=== PATIENT | female | born 1980 | race Hispanic/Latino ===

== ENCOUNTER 2016-10-14 16:07 | Emergency (ER) | payer OTHER, MEDICAID ==
[2016-10-14 16:11] VITALS: BP 143/73; PULSE 91; RESP 20; TEMP 98; O2SAT 100
--- NOTE | 2016-10-14 16:14 | ED PDOC ---
HPI: Female Pain Time Seen by Provider: 10/14/16 16:12 Chief Complaint (Nursing): Female Genitourinary Chief Complaint (Provider): Vaginal bleeding History Per: Patient Additional Complaint(s): Pt arrives for eval of vaginal bleeding while . Pt is currently 11 weeks , . Pt denies pain but states that she noticed a clot and then some pink tinged spotting when she used the bathroom. Hx of bariatric sx approx 18 months ago. Past Medical History Reviewed: Nursing Documentation, Vital Signs Vital Signs: Last Vital Signs Temp 98 F 10/14/16 16:08 Pulse 91 H 10/14/16 16:08 Resp 20 10/14/16 16:08 BP 143/73 10/14/16 16:08 Pulse Ox 100 10/14/16 16:08 - Medical History PMH: Asthma, HTN - Surgical History Surgical History: No Surg Hx - Family History Family History: States: Unknown Family Hx - Living Arrangements Living Arrangements: With Family - Social History Current smoker - smoking cessation education provided: No Alcohol: None Drugs: Denies - Immunization History Hx Tetanus Toxoid Vaccination: Yes Hx Influenza Vaccination: No Hx Pneumococcal Vaccination: Yes - Home Medications Home Medications: Ambulatory Orders Medication Instructions Recorded Folic Acid 1 mg PO DAILY 09/30/16 Nitrofurantoin Macrocrystals 1 cap PO BID #14 cap 09/30/16 [Macrobid] Multivit/Folic Acid/I 1 tab PO DAILY 09/30/16 [ Plus] Ibuprofen [Motrin] 600 mg PO Q6 #20 tab 10/14/16 - Allergies Allergies/Adverse Reactions: Allergies Allergy/AdvReac Type Severity Reaction Status Date / Time Penicillins Allergy Verified 02/16/16 09:08 Review of Systems ROS Statement: Except As Marked, All Systems Reviewed And Found Negative Physical Exam - Reviewed Nursing Documentation Reviewed: Yes Vital Signs Reviewed: Yes - Physical Exam Appears: Positive for: Well, Non-toxic, No Acute Distress Head Exam: Positive for: ATRAUMATIC, NORMAL INSPECTION, NORMOCEPHALIC Skin: Positive for: Normal Color, Warm, DRY Eye Exam: Positive for: EOMI, Normal appearance, PERRL ENT: Positive for: Normal ENT Inspection Neck: Positive for: Normal, Painless ROM Cardiovascular/Chest: Positive for: Regular Rate, Rhythm Respiratory: Positive for: CNT, Normal Breath Sounds Gastrointestinal/Abdominal: Positive for: Normal Exam, Bowel Sounds, Soft. Negative for: Tenderness Pelvic Exam: Positive for: External Exam Normal. Negative for: Active Bleeding Back: Positive for: Normal Inspection Extremity: Positive for: Normal ROM Neurologic/Psych: Positive for: Alert, Oriented - Laboratory Results Result Diagrams: 10/14/16 16:40 - ECG O2 Sat by Pulse Oximetry: 100 Medical Decision Making Medical Decision Making: Preg (+) Dip (+) blood, (-) Leuks and Nites Beta: [id number] EXAM: US , Transvaginal CLINICAL HISTORY: 36 years old female; Signs and symptoms; Lmp or gestational age (in weeks): 9 weeks 0 days as per pt last ultrasond; Other: Bleeding with clots; ; Additional info: Preg and bleeding TECHNIQUE: Pelvic ultrasound was performed utilizing transabdominal and endovaginal probes for better visualization of the adnexa and endometrial contents. COMPARISON: None FINDINGS: Uterus: Uterus is anteverted and of normal size and measures 9.5 x 7.7 x 5.3 cm. There are subcentimeter nabothian cysts in the cervix. Gestation: There is an intrauterine gestational sac, containing an embryo with a mean crown rump length of 1.55 cm, equivalent to an 8 week, 0 day . Mean gestational sac diameter is 2.07 cm equivalent to a 6 week 4 day . Composite ultrasound age is 7 weeks 2 days with an EDC 05/31/17. No embryonic cardiac motion is seen, consistent with embryonic demise. There is no subchorionic hemorrhage. Normal-appearing yolk sac is visualized. Free fluid: There is no free fluid in the pelvis. Ovaries: No mass or cyst. The right ovary measures 3.7 x 2.1 x 2 cm. The left ovary measures 3.2 x 3.1 x 2.1 cm. There is blood flow in both ovaries and there are no findings to suggest ovarian torsion. IMPRESSION: 7 week, 2 day embryonic demise. results discussed with Pt at great length Pt upset, crying, at bedside. Use of Cytotec discussed; however, Pt prefers to go home and follow up with her [employer]CO [employer]. Pt advised to return to ED if at anytime condition worsens. Disposition - Clinical Impression Clinical Impression: Spontaneous , demise - Patient ED Disposition Is Patient to be Admitted: No - Disposition Disposition: Routine/Home Disposition Time: 18:47 Condition: STABLE Additional Instructions: Follow up with your [employer]AC[employer] Return to ED if at anytime condition worsens Prescriptions: Ibuprofen [Motrin] 600 mg PO Q6 #20 tab Instructions: Spontaneous Miscarriage (ED) - POA Present On Arrival: None
[2016-10-14 16:46] LABS: BASO # 0.1 K/uL (0.0-0.2); BASO % 1.5 % (0.0-2.0); EOS # 0.3 K/uL (0.0-0.7); EOS % 2.7 % (0.0-4.0); HEMOGLOBIN 12.4 g/dL (12.0-16.0); LYMPH # 2.2 K/uL (1.0-4.3); LYMPH % 23.5 % (20.0-40.0); MEAN CELL VOLUME 91.9 fl (81.0-99.0); MEAN CORPUSCULAR HEMOGLOBIN 30.7 pg (27.0-31.0); MEAN CORPUSCULAR HGB CONC 33.4 g/dL (33.0-37.0); MONO # 0.8 K/uL (0.0-0.8); MONO % 8.8 % (0.0-10.0); NEUT # 5.9 K/uL (1.8-7.0); NEUT % 63.5 % (50.0-75.0); RBC 4.04 Mil/uL (3.80-5.20); RED CELL DISTRIBUTION WIDTH 13.5 % (11.5-14.5); WHITE BLOOD COUNT 9.3 K/uL (4.8-10.8)
[2016-10-14 17:02] LABS: SQUAMOUS EPITHIAL 33 /hpf (0-5); URINE BACTERIA RARE (<OCC); URINE BILIRUBIN NEGATIVE (NEGATIVE); URINE BLOOD LARGE (NEGATIVE); URINE CLARITY CLOUDY (Clear); URINE COLOR YELLOW (YELLOW); URINE GLUCOSE (UA) NEG (Normal); URINE LEUKOCYTE ESTERASE TRACE Leu/uL (Negative); URINE NITRATE NEGATIVE (NEGATIVE); URINE PROTEIN 30 mg/dL (NEGATIVE); URINE UROBILINOGEN 0.2-1.0 mg/dL (0.2-1.0)
--- NOTE | 2016-10-15 10:54 | US ---
PROCEDURE: First trimester ultrasound HISTORY: preg and bleeding. LMP: Unknown COMPARISON: None available. TECHNIQUE: Standard protocol for this study/examination. FINDINGS: LMP: Unknown Prior examinations from the current : None TECHNIQUE: Real-time 2D imaging, duplex and color Doppler. FINDINGS: Cardiac activity: Absent Measurements: [place] rump length: 1.55 cm Gestational age based on CRL 8 weeks Gestational age based on gestational sac measurement 6 weeks 4 days Gestational age derived from LMP: Cannot be ascertained based in the absence of a reliable/ known LMP ANUM based on LMP: Cannot be ascertained based in the absence of a reliable/ known LMP ANUM based on biometry: 05/31/2017 Yolk sac identified Uterus: Unremarkable. No Cervical abnormalities: Negative examination for cervical dilatation or effacement. Incidental finding: Nabothian cysts Subchorionic hemorrhage: None ADNEXA: Right: 2.1 x 2 x 3.7 cm. Normal Doppler arterial waveform documented. Left: 2.1 x 3.1 x 2.1 cm. Normal Doppler arterial waveform documented Fluid in the cul-de-sac: None IMPRESSION: Composite gestational age 7 weeks 2 days. Absence of cardiac activity indicates intrauterine demise. Concordant results (preliminary interpretation) provided by [employer]. Procedure Completed: 17:29 Preliminary ([facility]) Report: Dictated and Authenticated: 18:24 Final Interpretation: 10:52. October 15, 2016.
== END 2016-10-14 18:28 | disposition home or self-care (01) ==
LOC: H.ER 16:07
DX: O03.9 Complete or unspecified spontaneous abortion without complication (principal); O16.1 Unspecified maternal hypertension, first trimester; Z88.0 Allergy status to penicillin; N88.8 Other specified noninflammatory disorders of cervix uteri